=== PATIENT | female | born 1995 | race Hispanic/Latino ===

== ENCOUNTER 2020-05-31 06:33 | Emergency (ER) | payer OTHER, SELFPAY ==
[2020-05-31] VITALS (8 sets, daily range): BP systolic 121–129; BP diastolic 67–83; PULSE 87–95; RESP 18; TEMP 36.6; O2SAT 100
--- NOTE | 2020-05-31 07:06 | ED.GENADULT ---
HPI - General Adult General Chief complaint: Head Injury Stated complaint: head injury, dizziness Time Seen by Provider: 05/31/20 07:03 Source: patient and family Mode of arrival: ambulatory Limitations: no limitations History of Present Illness HPI narrative: Patient is a 24-year-old female who presents for evaluation of headache following hitting her head on a door. Patient states that she had a swinging door hit her in the head approximately 4 days ago. Patient had no loss of consciousness. Patient did not fall or strike her head on the ground or injure her neck. She states she felt fine that day, since that time she has developed mild, aching headache pain. Pain is over her frontal headache area. She has had some associated nausea without vomiting. No vision changes. No numbness or weakness. Patient has been ambulatory. She has not tried any pain medication. Patient states she had a panic attack this morning and does have a history of anxiety so her mother wanted her to be examined. Patient has no history of cancer. No thunderclap sensation to the headache. It is not maximal in intensity. She denies neck pain or fever. Related Data Allergies Allergy/AdvReac Type Severity Reaction Status Date / Time Penicillins Allergy Unknown Verified 05/31/20 06:44 Review of Systems Review of Systems: Narrative: CONSTITUTIONAL: Denies fever, chills EYES: Denies visual changes ENT: Denies rhinorrhea, congestion, sore throat, or otalgia. CARDIOVASCULAR: Denies chest pain, palpitations, or edema. RESPIRATORY: Denies cough or dyspnea. GASTROINTESTINAL: Denies abdominal pain, reports intermittent nausea, no vomiting GENITOURINARY: Denies dysuria or hematuria. SKIN: Denies rash or itching. MUSCULOSKELETAL: Denies back pain, joint pain, or myalgia. NEUROLOGIC: Reports mild headache without numbness, or weakness. PSYCHIATRIC: Reports anxiety PMFSH Past Medical History Medical History (Updated 05/31/20 @ 07:37 by Allegra Wu MD) Anxiety Social History Social History (Updated 05/31/20 @ 07:37 by Allegra Wu MD) Smoking status: Never smoker Alcohol intake: current Alcohol use details: Social, rarely Substance use: never Living arrangements: with family Gender identity (if verbalized by the patient): Female Exam Narrative: Exam Narrative: GENERAL: Awake, alert, conversant HEAD: Normocephalic, atraumatic. EYES: 2+ PERRLA and EOMI. no nystagmus. No gaze palsy. ENT: Nares clear, no rhinorrhea or epistaxis. Mucous membranes moist. NECK: Supple. No cervical midline tenderness. No step-offs or deformities. No paraspinal cervical tenderness. CHEST: No respiratory distress, breathing even and non labored HEART: Regular rate, sinus rhythm ABDOMEN:Non distended, non tender EXTREMITIES: Normal range of motion. No edema. SKIN: Warm, dry, no rash. NEURO:No focal deficits. Alert and oriented x3. Finger to nose intact bilaterally. EOMs intact without nystagmus. No facial droop/asymmetry noted bilaterally. Grimace intact. Intact sensation in face. Hearing intact bilaterally. Shoulder shrug intact. Strength 5/5 bilateral upper extremities. Strength 5/5 bilateral lower extremities. Reflexes 2+ patellar. Heel to ng intact bilaterally. Ambulatory with tandem gait, intact, no ataxia. Course Vital Signs Vital signs: Vital Signs Temperature 36.6 C 05/31/20 06:37 Pulse Rate 95 05/31/20 06:37 Respiratory Rate 18 05/31/20 06:37 Blood Pressure 122/83 05/31/20 06:37 Pulse Oximetry 100 05/31/20 06:37 Temperature 36.6 C 05/31/20 06:37 Pulse Rate 95 05/31/20 06:37 Respiratory Rate 18 05/31/20 06:37 Blood Pressure 121/67 05/31/20 07:01 Pulse Oximetry 100 05/31/20 07:01 Medical Decision Making MDM Narrative Medical decision making narrative: The patient was evaluated in the emergency department for headache. Patient's headache pain was not sudden or maximal in onset. There are no foca
--- NOTE | 2020-05-31 07:11 | PC.NURSE ---
pt report given to jeanmarie don by dilip.
== END 2020-05-31 08:03 | disposition home or self-care (01) ==
PROVIDERS: Emergency Provider Emergency Medicine
DX: F07.81 Postconcussional syndrome (principal); G44.309 Post-traumatic headache, unspecified, not intractable
CPT/HCPCS: 99283

== ENCOUNTER 2021-12-24 15:15 | Emergency (ER) | payer OTHER, SELFPAY ==
[2021-12-24 15:46] VITALS: BP 132/66; PULSE 108; RESP 16; TEMP 37.5; O2SAT 100
--- NOTE | 2021-12-24 15:48 | ECG_ITS ---
Measurements Intervals [place] Rate: 77 P: 13 [place]: 131 QRS: 40 QRSD: 89 T: 11 QT: 371 QTc: 420 Interpretive Statements SINUS RHYTHM NORMAL ECG COMPARED TO ECG 02/21/2019 21:13:40 NO SIGNIFICANT CHANGES Electronically Signed On 12-24-2021 17:36:09 CDT by Jef Prasad M.D.
[2021-12-24 21:29] LABS: Basophils Percent Auto 0.3 % (0.2-1.2); Eosinophils Absolute Auto 0.2 K/mm3 (0-0.3); Eosinophils Percent Auto 1.5 % (0-4.4); Hematocrit 42.5 % (37.0-47.0); Hemoglobin 14.2 g/dL (12.0-15.0); Immature Granulocyte Absolute 0.03 K/mm3 (0.00-0.031); Immature Granulocyte Percent A 0.3 % (0-0.5); Lymphocytes Absolute Auto 3.34 K/mm3 (0.9-3.2); Lymphocytes Percent Auto 30.2 % (18.3-44.2); Mean Corpuscular HGB Conc 33.4 g/dl (32-36); Mean Corpuscular Hemoglobin 28.9 pg (26-34); Mean Corpuscular Volume 86.4 fl (80-100); Mean Platelet Volume 9.8 fl (7.4-10.4); Monocytes Absolute Auto 0.6 K/mm3 (0.1-0.6); Monocytes Percent Auto 5.1 % (2.6-8.5); Neutrophils Absolute Auto 6.9 K/mm3 (1.3-6.7); Neutrophils Percent Auto 62.6 % (45.5-73.1); Platelet Count Result 306 k/mm3 (150-375); Red Blood Count 4.92 M/mm3 (4.2-5.4); Red Cell Distribution Width 12.9 % (11.5-14.5); White Blood Count 11.1 K/mm3 (4.5-10.0)
[2021-12-24 21:36] LABS: Alanine Aminotransferase 111 U/L (4-35); Alkaline Phosphatase 85 U/L (38-126); Anion Gap 10 mmol/L (8-16); Aspartate Amino Transferase 80 U/L (14-36); Bilirubin,Total 0.5 mg/dL (0.2-1.3); Blood Urea Nitrogen 8 mg/dL (7-17); Calcium 9.5 mg/dL (8.4-10.2); Carbon Dioxide 23 mmol/L (22-30); Chloride 104 mmol/L (98-107); Estimated CRCL calculation 99 ml/min; Estimated Glomerular Filt Rate > 60; Glucose 93 mg/dL (65-110); Potassium 4.2 mmol/L (3.4-5.0); Sodium 137 mmol/L (137-145)
[2021-12-24 22:01] LABS: Add Urine Microscopic? YES; Appearance Urine Clear (Clear); Bacteria Urine Trace /hpf; Bilirubin Urine Negative (Negative); Blood Urine 2+ (Negative); Color Urine Yellow (Yellow); Glucose Urine UA Negative (Negative); Ketones Urine Negative (Negative); Leukocyte Esterase Ur Negative LEU/UL (Negative); Mucus Urine Rare /lpf; Nitrate Urine Negative (Negative); Protein Urine Negative (Negative); RBC Urine 0-2 /hpf (0-2); Squamous Epithelial Cell Urine Occasional /hpf (Few); Urobilinogen Urine Negative mg/dL (<2.0); WBC Urine 0-3 /hpf
[2021-12-24] MEDS: SODIUM CHLORIDE 0.9% IV 1,000 ML 999 ML IV CONT (23:55)
[2021-12-24] MEDS: MECLIZINE HCL 25 MG TABLET PO (23:57)
--- NOTE | 2021-12-25 00:50 | ED.DIZZY ---
HPI - Dizziness General Chief Complaint: Dizziness Stated Complaint: dizzy for three day, nausea Time Seen by Provider: 12/24/21 22:49 History of Present Illness HPI Narrative: Patient is a 26-year-old female who presents ER with dizziness nausea. Ongoing for 3 days. More intense over the last 2 days. Reports when she goes from sitting to standing she sees the room spinning. Occasionally this is associated with a wave of nausea anxiousness where she breathes fast and her fingers become tingly. No focal weakness in arm or leg. Symptoms get better when she slows down and worsen with quick movements. Denies runny nose or sore throat or productive cough. No tinnitus or ear pressure. Related Data Allergies Allergy/AdvReac Type Severity Reaction Status Date / Time metronidazole Allergy Unknown FAINTING/VO Verified 02/19/21 09:12 MITING nitrofurantoin Allergy Unknown SWELLING/VO Verified 02/19/21 09:12 MITING Penicillins Allergy Unknown RASH Verified 02/19/21 09:12 sulfamethoxazole Allergy Unknown SWELLING Verified 02/19/21 09:12 trimethoprim Allergy Unknown SWELLING Verified 02/19/21 09:12 Review of Systems Review of Systems: All systems reviewed & are unremarkable except as noted in HPI and below Constitutional: Constitutional: Denies chills, Denies fever(s) and Denies weakness ENT: Denies nasal congestion and Denies sore throat Cardiovascular: Cardiovascular: Denies chest pain, Denies rapid heart rate and Denies radiating jaw, neck or arm pain Respiratory: Respiratory: Denies cough and Denies dyspnea Gastrointestinal: Gastrointestinal: Denies abdominal pain, Reports nausea and Denies vomiting Neurologic: Reports dizziness, Denies focal weakness and Denies numbness Psychiatric: Psychiatric: Reports anxiety PMFSH Past Medical History Medical History (Updated 12/25/21 @ 01:13 by Vinicius Piña MD) Anxiety Surgical History Surgical History (Updated 12/25/21 @ 01:13 by Vinicius Piña MD) No pertinent past surgical history Social History Social History (System 02/19/21 @ 09:12 by Francisco Farooq) Smoking status: Never smoker Alcohol intake: current Alcohol use details: Social, rarely Substance use: never Gender identity (if verbalized by the patient): Female Exam Narrative: GENERAL: Well-appearing, well-nourished, and in no acute distress. HEAD: Normocephalic, atraumatic. EYES: PERRL and EOMI. ENT: Mucous membranes moist. TMs normal appearance without erythema or bulging, mild amount of cerumen in bilateral ear canals. NECK: Supple. CHEST: Clear to auscultation. No respiratory distress. HEART: Regular rate and rhythm. Normal peripheral pulses. ABDOMEN: Soft, nontender, nondistended. EXTREMITIES: Normal range of motion. No edema. SKIN: Warm, dry, no rash. NEURO: Alert and oriented x3. Course Course Emergency Course: Patient reports mild improvement with meclizine and IV fluids. Recommend meclizine for home. Vital Signs Vital signs: Vital Signs Temperature 99.5 F 12/24/21 15:46 Pulse Rate 108 H 12/24/21 15:46 Respiratory Rate 16 12/24/21 15:46 Blood Pressure 132/66 12/24/21 15:46 Pulse Oximetry 100 12/24/21 15:46 Temperature 99.5 F 12/24/21 15:46 Pulse Rate 108 H 12/24/21 15:46 Respiratory Rate 16 12/24/21 15:46 Blood Pressure 132/66 12/24/21 15:46 Pulse Oximetry 100 12/24/21 15:46 MDM - Dizziness Lab Data Result diagrams: 12/24/21 21:20 12/24/21 21:20 Labs: Lab Results 12/24/21 12/24/21 12/24/21 Range/Units 21:20 21:20 21:21 WBC 11.1 H (4.5-10.0) K/mm3 RBC 4.92 (4.2-5.4) M/mm3 Hgb 14.2 (12.0-15.0) g/dL Hct 42.5 (37.0-47.0) % MCV 86.4 (80-100) fl MCH 28.9 (26-34) pg MCHC 33.4 (32-36) g/dl RDW 12.9 (11.5-14.5) % Plt Count 306 (150-375) k/mm3 MPV 9.8 (7.4-10.4) fl Immature Gran % (Auto) 0.3 (0-0.5) % Neut % (Auto) 62.6 (45.5-73.
[2021-12-25 01:58] VITALS: BP 122/75; PULSE 75; RESP 16; O2SAT 98
== END 2021-12-25 02:00 | disposition home or self-care (01) ==
PROVIDERS: Emergency Provider Emergency Medicine
DX: R42 Dizziness and giddiness (principal)
CPT/HCPCS: 36415; 80053; 81001; 81025; 85025; 93005; 96360; 96361; 99283; A9270; J7030

== ENCOUNTER 2022-02-28 08:20 | Outpatient (CLI) | payer OTHER, SELFPAY ==
--- NOTE | ~2022-02-28 | US_ITS ---
US right upper quadrant INDICATION: Abnormal levels of serum enzymes PROCEDURE: Realtime right upper abdominal ultrasound. COMPARISON: No prior studies for comparison. FINDINGS: The pancreas is normal without focal mass or pancreatic ductal dilation. Liver echotexture is increased, consistent with fatty infiltration.There is a small hypoechoic mass in the liver measu ring 1.5 x 1 x 0.8 cm near the gallbladder fossa. There is normal directional flow in the portal vei n. The gallbladder is normal without stones, gallbladder wall thickening or pericholecystic fluid. Comm on bile duct measures 5 mm. No sonographic Mancuso's sign. IMPRESSION: 1: Hepatic steatosis. Small 1.5 cm hypoechoic mass near the gallbladder fossa which may represent foc al fatty sparing, although mass is not excluded. Recommend correlation with contrast-enhanced CT or M RI. Reviewed, dictated and finalized at location B. IMPRESSION: 1: Hepatic steatosis. Small 1.5 cm hypoechoic mass near the gallbladder fossa w hich may represent focal fatty sparing, although mass is not excluded. Recommen d correlation with contrast-enhanced CT or MRI.
== END 2022-02-28 08:21 | disposition home or self-care (01) ==
PROVIDERS: PCP Family Medicine; Visit Provider Family Medicine
DX: R74.8 Abnormal levels of other serum enzymes (principal); K76.0 Fatty (change of) liver, not elsewhere classified
CPT/HCPCS: 76705

== ENCOUNTER → 2022-04-18 08:53 | Outpatient (CLI) | payer OTHER, SELFPAY ==
--- NOTE | ~2022-04-18 | CT_ITS ---
EXAMINATION: CT abdomen wo/w con INDICATION: Hepatomegaly not elsewhere classified, possible liver mass on ultrasound TECHNIQUE: Computed tomographic images of the abdomen were obtained prior to then following the admin istration of 100 cc of Omnipaque 350 intravenous contrast in the arterial and portal venous phases. T he dose-length product (DLP) was 1484.56 mGy-cm. Automated exposure control and iterative reconstruct ion technique were employed. COMPARISON: Ultrasound, 02/28/2022 FINDINGS: The lung bases are clear. The heart size is normal. The liver is diffusely low in attenuati on when compared with the spleen, consistent with hepatic steatosis. No focal liver mass is identifie d. There are areas of focal fatty sparing of the liver at the gallbladder fossa, correlating with the sonographic abnormality. The spleen, pancreas, gallbladder, and adrenal glands are normal. The kidne ys are unremarkable. IMPRESSION: 1. Diffuse hepatic steatosis without suspicious liver mass identified. Reviewed, dictated and finalized at location B.
== END ==
PROVIDERS: PCP Family Medicine; Visit Provider Family Medicine
DX: R16.0 Hepatomegaly, not elsewhere classified (principal); R74.8 Abnormal levels of other serum enzymes; K76.0 Fatty (change of) liver, not elsewhere classified
CPT/HCPCS: 74170; Q9967

== ENCOUNTER 2022-06-20 15:07 | Outpatient (CLI) | payer OTHER, SELFPAY | END 2022-06-20 15:08 | disposition home or self-care (01) | LOC: ANHGOSHLAB 15:09 | PROVIDERS: PCP Family Medicine; Visit Provider Nurse Practitioner | DX: N92.6 Irregular menstruation, unspecified (principal) | CPT/HCPCS: 99199; 36415 ==

== ENCOUNTER 2023-09-11 08:51 | Emergency (ER) | payer BC, SELFPAY ==
--- NOTE | ~2023-09-11 | US_ITS ---
Duplex Sonography of the right extremity: Indication: Swelling Findings: Sagittal and transverse B-mode images as well as color-flow imaging were performed on the r ight femoral and popliteal veins. B-mode examination was done without and with compression in the tr ansverse plane. There is good visualization of the common femoral, proximal profunda femoral, superf icial femoral, greater saphenous, and popliteal veins. Normal flow was seen on color-flow imaging. N ormal compressibility was demonstrated. Visualized calf veins are also patent. Impression: No evidence of deep vein thrombosis involving the right lower extremity. Reviewed, dictated and finalized at location M. UTER SCIENCE PROFESSOR Impression: No evidence of deep vein thrombosis involving the right lower extremity.
[2023-09-11 08:52] VITALS: BP 124/64; PULSE 77; RESP 18; TEMP 36.4; O2SAT 100
--- NOTE | 2023-09-11 09:19 | ED.EXTPRO ---
HPI - Extremity Problem General Chief complaint: Extremity Problem,Nontraumatic Stated complaint: right leg pain/swelling Time Seen by Provider: 09/11/23 09:16 History of Present Illness HPI Narrative: Patient is a 27-year-old female who presents ER with pain in her right calf. Ongoing for 2 days. Associated with edema today. She has been taking naproxen which does help her discomfort. She has also been wearing a compression stocking on his help some of the edema. No recent trauma. No known malignancy. She is not on any control pills. No chest pain or shortness of breath. Related Data Allergies Allergy/AdvReac Type Severity Reaction Status Date / Time metronidazole Allergy Unknown FAINTING/VO Verified 09/11/23 09:48 MITING nitrofurantoin Allergy Unknown SWELLING/VO Verified 09/11/23 09:48 MITING Penicillins Allergy Unknown RASH Verified 09/11/23 09:48 sulfamethoxazole Allergy Unknown SWELLING Verified 09/11/23 09:48 trimethoprim Allergy Unknown SWELLING Verified 09/11/23 09:48 Review of Systems Review of Systems: All systems reviewed & are unremarkable except as noted in HPI and below Constitutional: Constitutional: Denies chills, Denies fatigue and Denies fever(s) Cardiovascular: Cardiovascular: Reports no additional cardiovascular complaints Respiratory: Respiratory: Reports no additional respiratory complaints Musculoskeletal: Musculoskeletal: Denies arthralgias and Denies joint swelling Comments: Right calf pain PMFSH Past Medical History Medical History Anxiety Surgical History Surgical History No pertinent past surgical history Social History Social History (Updated 05/16/23 @ 13:46 by Yenni eVras MA) Smoking status: Never smoker Alcohol intake: current Alcohol use details: Social, rarely Substance use: never Other substance usage details: CBD oil THC free Lack of Transportation: No Lack of Food: Never True Current Housing: I Have Housing Concerned About Future Housing: No Difficulty Paying Gas/Electric Bills: No Difficulty Paying for Meds: No Currently Unemployed: No Difficulty w/ Childcare or Family Care: No Living arrangements: with family Gender identity (if verbalized by the patient): Female Exam Narrative: GENERAL: Well-appearing, well-nourished, and in no acute distress. HEAD: Normocephalic, atraumatic. EXTREMITIES: Normal range of motion. Trace edema. mild pain to palpation right calf without palpable cord. SKIN: Warm, dry, no rash. NEURO: Alert and oriented x3. PSYCH: Normal mood and affect. Course Course Emergency Course: Patient informed of results. Discussed conservative treatment for home. Discharge. Vital Signs Vital signs: Vital Signs Temperature 97.6 F 09/11/23 08:52 Pulse Rate 77 09/11/23 08:52 Respiratory Rate 18 09/11/23 08:52 Blood Pressure 124/64 09/11/23 08:52 Pulse Oximetry 100 09/11/23 08:52 Oxygen Delivery Room Air 09/11/23 08:52 Temperature 97.6 F 09/11/23 08:52 Pulse Rate 77 09/11/23 08:52 Respiratory Rate 18 09/11/23 08:52 Blood Pressure 124/64 09/11/23 08:52 Pulse Oximetry 100 09/11/23 08:52 Oxygen Delivery Room Air 09/11/23 08:52 MDM - Extremity (Nontraumatic) Imaging Data Radiologist's impression: ITS Impressions Venous Doppler Study 09/11/23 09:49 Impression: No evidence of deep vein thrombosis involving the right lower extremity. Discharge Plan Discharge Clinical Impression: Strain of calf muscle Patient Disposition: Home, Self-Care Condition: Stable Instructions: Muscle Strain (ED), P.R.I.C.E. Treatment (ED) Additional Instructions: Return to the ER if you have chest pain or shortness of breath, you lose consciousness, or you have additional concerns. Prescript
== END 2023-09-11 10:26 | disposition home or self-care (01) ==
PROVIDERS: Emergency Provider Emergency Medicine; PCP Family Medicine
DX: S86.811A Strain of other muscle(s) and tendon(s) at lower leg level, right leg, initial encounter (principal); T14.90XA Injury, unspecified, initial encounter
CPT/HCPCS: 93971; 99284